=== PATIENT | male | born 1975 | race Caucasian/White ===

== ENCOUNTER → 2017-09-20 | Outpatient (CLI) | payer BC ==
[~2017-09-20] MED LIST: BACL10TA PO; IBUP-1428 PO
[2017-09-20 17:10] LABS: ALT/SGPT 49 U/L (12-78); AST/SGOT 16 U/L (15-37); BLOOD UREA NITROGEN 17 mg/dl (7-18); BUN/CREATININE RATIO 16.4 (10-20); CALCIUM 8.6 mg/dl (8.5-10.1); CARBON DIOXIDE 25 mmol/L (21-32); CHLORIDE 106 mmol/L (98-107); CREATININE 1.05 mg/dl (0.60-1.40); GLUCOSE 96 mg/dl (70-99); POTASSIUM 3.7 mmol/L (3.5-5.1); SODIUM 139 mmol/L (136-145)
[2017-09-20 17:17] LABS: PROLACTIN 5.32 ng/mL
[2017-09-20 17:21] LABS: ALB/GLOB RATIO 1.1 (0.9-2); ALKALINE PHOSPHATASE 80 U/L (45-117)
[2017-09-25 22:18] LABS: TESTOSTERONE,TOTAL 177 ng/dL (250-1100)
== END | disposition home or self-care (01) ==
LOC: C.LAB1850 15:20
PROVIDERS: ATTEND Plastic Surgery
DX: N62 Hypertrophy of breast (principal)

== ENCOUNTER → 2017-11-29 | Outpatient (CLI) | payer BC | END | disposition home or self-care (01) | LOC: C.LAB 06:56 | PROVIDERS: ATTEND Internal Medicine Endocrinology, Diabetes & Metabolism | DX: N62 Hypertrophy of breast (principal) ==

== ENCOUNTER → 2018-01-17 | Outpatient (CLI) | payer BC | END | disposition home or self-care (01) | LOC: C.MAMM 08:16 | PROVIDERS: ATTEND Internal Medicine Endocrinology, Diabetes & Metabolism | DX: E34.9 Endocrine disorder, unspecified (principal) ==

== ENCOUNTER → 2018-01-30 | Outpatient (CLI) | payer BC ==
[2018-01-30 15:40] LABS: BASO % 0.4 %; BASO ABS # 0.03 K/uL (0-0.2); EOS % 2.8 %; EOS ABS # 0.23 K/uL (0-0.5); HEMATOCRIT 45.1 % (42-52); HEMOGLOBIN 15.7 g/dL (14.0-18.0); IG# 0.02 K/uL (0.00-0.02); LYMPH % 32.9 %; LYMPH ABS # 2.69 K/uL (1.2-3.4); MEAN CELL VOLUME 88.3 fL (80-100); MEAN CORPUSCULAR HEMOGLOBIN 30.7 pg (25-34); MEAN CORPUSCULAR HGB CONC 34.8 g/dl (32-36); MEAN PLATELET VOLUME 10.8 fL (7.4-10.4); MONO % 8.9 %; MONO ABS # 0.73 K/uL (0.11-0.59); NEUT % 54.8 %; NEUT ABS # 4.48 K/uL (1.4-6.5); PLATELET COUNT 193 K/uL (130-400); RED CELL DISTRIBUTION WIDTH SD 42.1 fL (36.4-46.3); WHITE BLOOD COUNT 8.18 K/uL (4.8-10.8)
[2018-01-30 15:59] LABS: BLOOD UREA NITROGEN 15 mg/dl (7-18); CALCIUM 8.9 mg/dl (8.5-10.1); CARBON DIOXIDE 27 mmol/L (21-32); CREATININE 0.99 mg/dl (0.60-1.40); GLUCOSE 86 mg/dl (70-99); POTASSIUM 3.7 mmol/L (3.5-5.1); SODIUM 140 mmol/L (136-145)
== END | disposition home or self-care (01) ==
LOC: C.LAB 14:27
PROVIDERS: ATTEND Physician Assistant
DX: Z01.818 Encounter for other preprocedural examination (principal); N62 Hypertrophy of breast

== ENCOUNTER → 2018-02-13 | Outpatient (CLI) | payer BC ==
[~2018-02-13] MED LIST changes: -BACL10TA PO; -IBUP-1428 PO; +TEST5GEL TOP
== END | disposition home or self-care (01) ==
LOC: C.LAB 14:59
PROVIDERS: ATTEND Physician Assistant
DX: N62 Hypertrophy of breast (principal); Z01.818 Encounter for other preprocedural examination

== ENCOUNTER 2025-08-10 10:46 | Observation (INO) ==
--- NOTE | 2025-08-10 11:23 | Emergency Department Note ---
Impression & Plan Calculus, ureteral, Hydronephrosis, Acute kidney injury ED Provider Note CHIEF COMPLAINT: Abdominal pain HISTORY OF PRESENTING ILLNESS: The patient is a pleasant 49-year-old male who arrives to the emergency department for evaluation of abdominal pain that began on Sunday morning. Patient reports pain is in the lower abdomen. He reports dry heaves, chills, at night. He states he did have a low-grade fever as well. He reports the pain began constant today in the right lower quadrant of the abdomen. He reports no nausea, vomiting, diarrhea, or constipation. REVIEW OF SYSTEMS: See HPI for pertinent positives and pertinent negatives. ALLERGIES: See below MEDICATIONS: See below PAST MEDICAL HISTORY: See below PHYSICAL EXAM: VITALS: Vitals are noted on the nurse's note and reviewed by myself. Vital signs stable. GENERAL: 49-year-old male, in no acute distress, nondiaphoretic, well-developed well-nourished. SKIN: The skin was without rashes, erythema, edema, or bruising. HEART: Regular rate and rhythm without murmurs gallops or rubs. LUNGS: Clear to auscultation bilaterally without wheezes, rales or rhonchi. No retractions or accessory muscle use. ABDOMEN: Positive bowel sounds x 4. Soft, tender to palpation right lower quadrant with rebound tenderness present. No tenderness at umbilicus. No tenderness left lower quadrant. No hernia or mass noted. MUSCULOSKELETAL: No muscle atrophy, erythema, or edema noted. Normal gait. Strength 5/5 throughout. NEURO: Patient was alert and oriented to person place and time. No focal neurological deficits. DIFFERENTIAL DIAGNOSIS: Appendicitis, testicular torsion, infections, diverticulitis, UTI, obstruction, mesenteric ischemia, aortic pathology, inflammatory bowel disease, renal colic, PUD, pancreatitis, biliary pathology, hernia, volvulus, constipation, as well as other pathologies. ED COURSE AND MEDICAL DECISION MAKING: HISTORY FROM INDEPENDENT HISTORIAN: at bedside serving as secondary historian. MEDICATIONS GIVEN: 1 L NSS bolus, 4 mg IV Zofran, 4 mg IV morphine INTERPRETATION OF LABS: I interpreted the labs with full lab results as below in the lab section of this note. Pertinent lab results discussed in the MDM section below. INTERPRETATION OF IMAGING: Imaging studies were interpreted by myself and read by radiology as per the imaging section of this note. CONSULTATIONS: LOWELL Curran MDM SUMMARY: The patient is a pleasant, 49-year-old male who arrives to the emergency department for evaluation of the above-stated complaint. Saline lock was established, lab work is obtained. Lab work shows no leukocytosis, no anemia. CMP shows acute kidney injury, with elevated creatinine at 1.76. Total bili 1.6, negative AST, negative ALT, negative alk phos. Total CK 311. Urinalysis negative for bacteria, and nitrites, however 1+ leukocyte esterase, and 6-[address] imaging of the abdomen and pelvis with IV contrast was obtained which per my interpretation shows findings consistent with a 9 mm proximal right ureteral calculus causing mild to moderate right hydronephrosis. Patient was provided IV fluids, IV pain and nausea control. I spoke with LOWELL Curran from urology, who stated the patient will likely need intervention for passing the stone. Patient was admitted to the [facility] for medical admission. Please refer to their documentation for further patient workup and care. DIAGNOSIS: Right ureteral calculus, hydronephrosis, acute kidney injury The chart was completed utilizing [employer] Speech voice recognition software. Grammatical errors, random word insertions, pronoun errors, and incomplete sentences are an occasional consequence of this system due to software limitations, ambient noise, and hardware issues. Any formal questions or concerns about the content, text, or information contained within the body of this dictation should be directly addressed to the provider for clarification. Past Med/Surg History Problem List (Updated 08/10/25 @ 15:07 by LOWELL Vaca) Acute kidney injury (Acute) Hydronephrosis (Acute) Calculus, ureteral (Acute) Nocturnal hypoxemia Severe obstructive sleep apnea Obesity, Class II, BMI 35-39.9 S/P right rotator cuff repair Rotator cuff tear, right Lumbar facet joint syndrome Erectile dysfunction Hypertension H/O lumbar discectomy Lumbar radiculopathy Acute right lumbar radiculopathy (Acute) Chronic low back pain (Chronic) Herpes simplex type 1 infection (Acute) Hypertriglyceridemia (Acute) Low testosterone (Acute) Allergic rhinitis Anxiety Lumbar facet joint syndrome (Chronic) Medical History Hypertension Erectile dysfunction Allergic rhinitis Low testosterone in male Hypertriglyceridemia Lumbar radiculopathy, chronic Chronic low back pain Anxiety History of gynecomastia Surgical History S/P colonoscopy Hx of breast reduction, elective S/P lateral meniscal repair S/P ACL reconstruction RIGHT S/P wisdom tooth extraction Family History Father Lung cancer Denies family history of Ovarian cancer Prostate cancer Myocardial infarction Breast cancer Colorectal cancer Social History Smoking Status: Never smoker Second Hand Exposure: No; Do You Dip or Chew Tobacco: No; Hx Alcohol Use: Yes Alcohol type: beer, wine and hard liquor Alcohol Intake Frequency: 2-3 x/Week Hx Substance Use: No Preferred Language: Irish Communication Ability: Effective Visual Impairment: No Limitations Hearing Ability: Normal Housekeeping Room Attendant Required: No Beliefs That Will Affect Care: None marital status: Current Living Situation: Spouse current occupational status: employed 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 How many Children do You have: 1 Feels Safe at Home: Yes Childhood Exposure to Second-Hand Smoke: Yes Diet: regular caffeine: Yes during the past year weight has: remained stable Dental Care, Regularly: Yes Physical Activity Frequency: 1-2 Times per Week Seatbelt Use: always Sunscreen Use: Yes Assistive Devices: None Allergies Allergies Allergy/AdvReac Type Severity Reaction Status Date / Time benzocaine Allergy Unknown rash Verified 06/15/25 13:58 hydroxyzine AdvReac Mild Excessive Verified 06/15/25 13:58 drowsiness Home Meds Home Medications Medication Instructions Recorded Confirmed cyanocobalamin (vitamin B-12) 1,000 mcg PO QPM 04/10/24 08/10/25 1,000 mcg tablet (Vitamin B-12) Previous Rx's Medication Instructions Recorded epinephrine 0.3 mg/0.3 mL 0.3 mg (0.3 mL) IM Q10M PRN food 09/11/19 injection, auto-injector (EpiPen allergy #2 ea 2-Jose) hydrocortisone-pramoxine 1 %-1 % 1 applic topical TID PRN 03/29/23 topical foam hemorrhoids #10 grams tadalafil 10 mg tablet (Cialis) 10 mg PO DAILY PRN sexual activity 01/22/24 #20 tabs naproxen 500 mg tablet 500 mg PO BID PRN pain #14 tabs 07/10/24 olmesartan 40 mg tablet 40 mg PO QPM #90 tabs 10/27/24 valacyclovir 1 gram tablet 1,000 mg PO TID PRN Zoster #21 tabs 02/18/25 tamsulosin 0.4 mg capsule (Flomax) 0.8 mg (2 x 0.4 mg) PO DAILY #180 05/15/25 caps bupropion HCl 300 mg 24 hr tablet, 300 mg PO QAM #90 tabs 05/18/25 extended release diclofenac sodium 75 mg 75 mg PO BID #30 tabs 08/05/25 tablet,delayed release Results & Data (ED) Vital Signs Vital Signs - 24 hr 08/10/25 11:06 08/10/25 11:30 08/10/25 11:48 Temperature 37.3 C Temperature Source Temporal Artery Scan Pulse Rate 76 Pulse Rate [Finger] 85 Respiratory Rate 18 22 Respiratory Effort / Characteristics Non-Labored Spontaneous Respiratory Depth Normal Respiratory Pattern Regular Blood Pressure 162/85 H Blood Pressure [Right Arm] 130/88 Blood Pressure Mean 110 Blood Pressure Mean [Right Arm] 102 Pulse Oximetry 97 97 95 Oxygen Delivery Method Room Air Room Air Room Air Sepsis Recent Fever Within 48 Hours No Sepsis New/Unexplained Change in Mental Status N/A Sepsis Action Taken by Nursing No Action Required Home Medications Current Medication List: was personally reviewed by me Laboratory Data Attestation: I reviewed the patient's lab results. 08/10/25 11:45 08/10/25 11:45 Lab Results 08/10/25 08/10/25 08/10/25 Range/Units 11:45 11:45 13:08 WBC 9.79 (4.8-10.8) K/ul RBC 5.19 (4.70-6.10) M/uL Hgb 15.9 (14.0-18.0) g/dl Hct 45.1 (42.0-52.0) % MCV 86.9 (80.0-100.0) fL MCH 30.6 (25.0-34.0) pg MCHC 35.3 (32.0-36.0) g/dL RDW Std Deviation 40.5 (36.4-46.3) fL RDW Coeff of Yoana 12.7 (11.5-14.5) % Plt Count 217 (130-400) K/uL MPV 10.8 (9.4-12.4) fL Immature Gran % (Auto) 0.3 % Neut % (Auto) 73.1 % Lymph % (Auto) 16.1 % [place] % (Auto) 8.4 % Eos % (Auto) 1.7 % Baso % (Auto) 0.4 % Neut # (Auto) 7.15 H (1.40-6.50) K/uL Lymph # (Auto) 1.58 (1.20-3.40) K/uL [place] # (Auto) 0.82 H (0.11-0.59) K/uL Eos # (Auto) 0.17 (0.00-0.50) K/uL Baso # (Auto) 0.04 (0.00-0.20) K/uL Immature Gran # (Auto) 0.03 (0.01-0.20) K/uL Sodium 137 (136-145) mmol/L Potassium 4.0 (3.5-5.1) mmol/L Chloride 105 (98-107) mmol/L Carbon Dioxide 26 (21-32) mmol/L Anion Gap 6 (3-11) BUN 18 (6-23) mg/dl Creatinine 1.76 H (0.6-1.4) mg/dl Est Cr Clr Drug Dosing 70.2 ml/min eGFR 47.11 BUN/Creatinine Ratio 10.2 (10-20) Glucose 95 (70-99(Fasting)) mg/dl Calcium 9.0 (8.6-10.3) mg/dl Total Bilirubin 1.6 H (0.2-1.0) mg/dl AST 19 (13-39) U/L ALT 26 (7-52) U/L Alkaline Phosphatase 74 (34-104) U/L Total Creatine Kinase 311 H Cancelled (30-223) U/L Total Protein 7.6 (6.0-8.3) gm/dl Albumin 4.6 (3.4-5.0) gm/dl Globulin 3.0 (2.5-4.0) gm/dl Albumin/Globulin Ratio 1.5 (0.9-2) Lipase 25 (11-82) U/L Urine Color Yellow Urine Appearance Clear (Clear) Urine pH 5.5 (4.5-7.5) Ur Specific [place] 1.018 (1.000-1.030) Urine Protein Negative (Negative) Urine Glucose (UA) Negative (Negative) Urine Ketones Negative (Negative) Urine Blood Negative (Negative) Urine Nitrite Negative (Negative) Urine Bilirubin Negative (Negative) Urine Urobilinogen Negative (Negative) Ur Leukocyte Esterase 1+ H (Negative) Urine WBC (Auto) 6-10 H (0-5) /hpf Urine RBC (Auto) 3-5 H (0-2) /hpf U Hyaline Cast (Auto) 0-2 (0-2) /lpf U Epithel Cells (Auto) 0-2 (0-2) /hpf Urine Bacteria (Auto) None Seen (None Seen) Urine Comment Administered Medications Discontinued Medications Sodium Chloride (Nss) 1,000 mls @ 999 mls/hr IV .Q1H1M STA Stop: 08/10/25 12:24 Last Infusion: 08/10/25 13:08 Dose: Infused Documented By: Admin: 08/10/25 11:49 Dose: 999 mls/hr Documented By: YUKO Ioversol (Optiray 320 100ml) 94 ml IV ONCE ONE Stop: 08/10/25 13:00 Last Admin: 08/10/25 12:59 Dose: 94 ml Documented By: SHIVAM Morphine Sulfate (Morphine Sulfate 4 Mg/Ml 1 Ml Carp\Vial) 4 mg IV NOW STA Stop: 08/10/25 11:25 Last Admin: 08/10/25 11:49 Dose: 4 mg Documented By: YUKO Morphine Sulfate (Morphine Sulfate 4 Mg/Ml 1 Ml Carp\Vial) 4 mg IV NOW STA Stop: 08/10/25 15:12 Last Admin: 08/10/25 15:20 Dose: 4 mg Documented By: YUKO Ondansetron HCl (Ondansetron Inj 2 Mg/Ml 2 Ml Vial) 4 mg IV NOW STA Stop: 08/10/25 11:25 Last Admin: 08/10/25 11:49 Dose: 4 mg Documented By: YUKO Imaging Data Attestation: I personally reviewed and interpreted this imaging study as follows: Radiologist's Impression: Abdomen/Pelvis CT 08/10/25 11:[address] WITH IV CONTRAST CT DOSE: 1640.5 mGy.cm HISTORY: RLQ pain TECHNIQUE: Multiaxial CT images of the abdomen and pelvis were performed following the IV administration of 90 cc of Optiray, A dose lowering technique was utilized adhering to the principles of ALARA. COMPARISON STUDY: None FINDINGS: ABDOMEN: There is mild fatty liver. There are a few tiny liver cysts. Otherwise the liver, gallbladder, spleen, pancreas, and adrenal glands are unremarkable. There is mild to moderate hydronephrosis at the right kidney. There is a 9 mm calculus proximal right ureter. Right ureter is decompressed beyond that point. There is a small left renal calculus. There is no left hydronephrosis or ureteral calculi. There are moderate atherosclerotic calcifications. No abdominal aortic aneurysm. Pelvis: Prostate is enlarged. Urinary bladder is mildly distended. There are a few small prostate calcifications. No bowel inflammation or obstruction. No free fluid or free air. Normal appendix. No enlarged adenopathy. Osseous structures: There is mild lumbar degenerative disc disease. There are mild degenerative changes at the hips. IMPRESSION: 9 mm calculus proximal right ureter causes mild to moderate right hydronephrosis. ACT 112: Negative or not required by law. The above report was generated using voice recognition software. It may contain grammatical, syntax or spelling errors. Electronically signed by: Forest Jeong M.D. 08/10/2025 1:06 PM Discharge Plan Visit Data Chief Complaint: Abdominal Pain Stated Complaint: SIDE PAIN FOR 3 DAYS ED Provider: Caren Noriega ED Midlevel Provider: Ora Nieto Discharge Problem: Calculus, ureteral, Hydronephrosis, Acute kidney injury Patient Disposition: Admitted As Inpatient Condition: Good Forms Stand Alone Forms: My [facility] [employer] Prescriptions Prescriptions: No Action olmesartan 40 mg tablet 40 mg PO QPM Qty: 90 3RF valacyclovir 1 gram tablet 1,000 mg PO TID PRN (Reason: Zoster) Qty: 21 5RF bupropion HCl 300 mg tablet extended release 24 hr 300 mg PO QAM Qty: 90 3RF diclofenac sodium 75 mg tablet,delayed release (DR/EC) 75 mg PO BID Qty: 30 1RF epinephrine [EpiPen 2-Jose] 0.3 mg/0.3 mL auto-injector 0.3 mg IM Q10M PRN (Reason: food allergy) Qty: 2 1RF Patient Comments: 08/10- no fill history unable to verify Rx Instructions: until response hydrocortisone-pramoxine 1-1 % foam 1 applic topical TID PRN (Reason: hemorrhoids) Qty: 10 0RF Patient Comments: 08/10- otc unable to verify Rx Instructions: allow at least 3 hours between applications tadalafil [Cialis] 10 mg tablet 10 mg PO DAILY PRN (Reason: sexual activity) Qty: 20 0RF Patient Comments: 08/10- no fill history unable to verify Rx Instructions: administer approximately 30min before sexual activity; do not use more than 1 dose per 24hrs naproxen 500 mg tablet 500 mg PO BID PRN (Reason: pain) Qty: 14 1RF Patient Comments: 08/10- otc unable to verify tamsulosin [Flomax] 0.4 mg capsule 0.8 mg PO DAILY Qty: 180 3RF cyanocobalamin (vitamin B-12) [Vitamin B-12] 1,000 mcg Tablet 1,000 mcg PO QPM Patient Comments: 08/10- otc unable to verify Referrals Referrals: Daniel Mchugh DO [Primary Care Provider] -
[2025-08-10] MEDS: SODIUM CHLORIDE 0.9% 1,000 ML IV STA (11:49)
[2025-08-10] MEDS: MoRPHine SULFATE 4 MG/ML 1 ML CARP\\VIAL IV STA ×2 (11:49→15:20)
[2025-08-10] MEDS: ONDANSETRON INJ 2 MG/ML 2 ML VIAL IV STA (11:49)
[2025-08-10 12:05] LABS: Hematocrit (blood only) 45.1 % (42.0-52.0); Hemoglobin 15.9 g/dl (14.0-18.0); Immature Granulocytes # (auto) 0.03 K/uL (0.01-0.20); Immature Granulocytes % (auto) 0.3 %; Mean Corpuscular Hemoglobin 30.6 pg (25.0-34.0); Mean Corpuscular Volume 86.9 fL (80.0-100.0); Platelet Count 217 K/uL (130-400); RDW Standard Deviation 40.5 fL (36.4-46.3); Red Blood Count 5.19 M/uL (4.70-6.10); White Blood Count 9.79 K/ul (4.8-10.8)
[2025-08-10 12:33] LABS: Alanine Aminotransferase 26.0 U/L (7-52); Albumin Globulin Ratio 1.5 (0.9-2); Alkaline Phosphatase 74.0 U/L (34-104); Anion Gap 6.0 (3-11); Bilirubin,Total 1.6 mg/dl (0.2-1.0); Blood Urea Nitrogen 18.0 mg/dl (6-23); Calcium 9.0 mg/dl (8.6-10.3); Carbon Dioxide 26.0 mmol/L (21-32); Chloride 105.0 mmol/L (98-107); Creatinine Clr Calc Pharmacy 70.2 ml/min; Globulin 3.0 gm/dl (2.5-4.0); Glucose 95.0 mg/dl (70-99(Fasting)); Lipase 25.0 U/L (11-82); Potassium 4.0 mmol/L (3.5-5.1); Sodium 137.0 mmol/L (136-145); Total Protein 7.6 gm/dl (6.0-8.3)
[2025-08-10] MEDS: OPTIRAY 320 100ml IV ONE (12:59)
--- NOTE | 2025-08-10 13:08 | CT Scan Report ---
ABDOMEN AND PELVIS CT WITH IV CONTRAST CT DOSE: 1640.5 mGy.cm HISTORY: RLQ pain TECHNIQUE: Multiaxial CT images of the abdomen and pelvis were performed following the IV administrat ion of 90 cc of Optiray, A dose lowering technique was utilized adhering to the principles of ALARA. COMPARISON STUDY: None FINDINGS: ABDOMEN: There is mild fatty liver. There are a few tiny liver cysts. Otherwise the liver, gallbladde r, spleen, pancreas, and adrenal glands are unremarkable. There is mild to moderate hydronephrosis at the right kidney. There is a 9 mm calculus proximal right ureter. Right ureter is decompressed beyon d that point. There is a small left renal calculus. There is no left hydronephrosis or ureteral calcu li. There are moderate atherosclerotic calcifications. No abdominal aortic aneurysm. Pelvis: Prostate is enlarged. Urinary bladder is mildly distended. There are a few small prostate renetta cifications. No bowel inflammation or obstruction. No free fluid or free air. Normal appendix. No enl arged adenopathy. Osseous structures: There is mild lumbar degenerative disc disease. There are mild degenerative hunter es at the hips. IMPRESSION: 9 mm calculus proximal right ureter causes mild to moderate right hydronephrosis. ACT 112: Negative or not required by law. The above report was generated using voice recognition software. It may contain grammatical, syntax o r spelling errors. Electronically signed by: Forest Jeong M.D. 08/10/2025 1:06 PM
[2025-08-10 13:36] LABS: Creatine Kinase 311.0 U/L (30-223)
[2025-08-10 13:58] LABS: Appearance Urine Clear (Clear); Bacteria Urine Automated None Seen (None Seen); Cast Urine Automated 0-2 /lpf (0-2); Epithelial Cell Urine Auto 0-2 /hpf (0-2); Glucose Urine UA Negative (Negative)
--- NOTE | 2025-08-10 15:19 | History & Physical Report ---
Date of Service August 10, 2025 Assessment & Plan (1) Calculus, ureteral: Plan: Right ureter calculus with ureter colic. Pain control measures. Urology consultation (2) Acute kidney injury: Plan: Creatinine has bumped to 1.7 with normal baseline. IV fluids. Monitor urine output. Serial labs (3) Hydronephrosis: Plan: Right sided from proximal ureter stone. This should resolve with resolution of obstruction (4) Hypertension: Plan: Stable. Resume ARB treatment tomorrow, August 11 (5) Severe obstructive sleep apnea: Plan: Currently stable. CPAP as needed Plan Anticipate eventual discharge to home within the next 2 to 3 days pending clinical course History of Present Illness Chief Complaint: 2 days of right flank pain and nausea Primary Care Provider: Daniel Mchugh, DO 49-year-old white male with 2 days of right flank pain associated with nausea. He feels as if he has had an intermittent fever. The pain became more steady today and he came to the ED for evaluation. He was found to have a 9 mm proximal right ureter stone with associated moderate right hydronephrosis and acute kidney injury with creatinine up to 1.7. Urology consult has been obtained. He is admitted for further evaluation and treatment along with IV fluids and will probably undergo cystoscopy procedure with right ureter stent placement plus or minus lithotripsy of the stone Allergies Allergy/AdvReac Type Severity Reaction Status Date / Time benzocaine Allergy Unknown rash Verified 06/15/25 13:58 hydroxyzine AdvReac Mild Excessive Verified 06/15/25 13:58 drowsiness Home Medications Medication Instructions Recorded Confirmed Type epinephrine 0.3 mg/0.3 mL 0.3 mg (0.3 mL) IM Q10M PRN food 09/11/19 08/10/25 Rx injection, auto-injector (EpiPen allergy #2 ea 2-Jose) hydrocortisone-pramoxine 1 %-1 % 1 applic topical TID PRN 03/29/23 08/10/25 Rx topical foam hemorrhoids #10 grams tadalafil 10 mg tablet (Cialis) 10 mg PO DAILY PRN sexual activity 01/22/24 08/10/25 Rx #20 tabs cyanocobalamin (vitamin B-12) 1,000 mcg PO QPM 04/10/24 08/10/25 History 1,000 mcg tablet (Vitamin B-12) naproxen 500 mg tablet 500 mg PO BID PRN pain #14 tabs 07/10/24 08/10/25 Rx olmesartan 40 mg tablet 40 mg PO QPM #90 tabs 10/27/24 08/10/25 Rx valacyclovir 1 gram tablet 1,000 mg PO TID PRN Zoster #21 tabs 02/18/25 08/10/25 Rx tamsulosin 0.4 mg capsule (Flomax) 0.8 mg (2 x 0.4 mg) PO DAILY #180 05/15/25 08/10/25 Rx caps bupropion HCl 300 mg 24 hr tablet, 300 mg PO QAM #90 tabs 05/18/25 08/10/25 Rx extended release diclofenac sodium 75 mg 75 mg PO BID #30 tabs 08/05/25 08/10/25 Rx tablet,delayed release Past Med/Surg History Problem List (Updated 08/10/25 @ 15:07 by LOWELL Vaca) Acute kidney injury (Acute) Hydronephrosis (Acute) Calculus, ureteral (Acute) Nocturnal hypoxemia Severe obstructive sleep apnea Obesity, Class II, BMI 35-39.9 S/P right rotator cuff repair Rotator cuff tear, right Lumbar facet joint syndrome Erectile dysfunction Hypertension H/O lumbar discectomy Lumbar radiculopathy Acute right lumbar radiculopathy (Acute) Chronic low back pain (Chronic) Herpes simplex type 1 infection (Acute) Hypertriglyceridemia (Acute) Low testosterone (Acute) Allergic rhinitis Anxiety Lumbar facet joint syndrome (Chronic) Medical History Hypertension Erectile dysfunction Allergic rhinitis Low testosterone in male Hypertriglyceridemia Lumbar radiculopathy, chronic Chronic low back pain Anxiety History of gynecomastia Surgical History S/P colonoscopy Hx of breast reduction, elective S/P lateral meniscal repair S/P ACL reconstruction RIGHT S/P wisdom tooth extraction Family History Father Lung cancer Denies family history of Ovarian cancer Prostate cancer Myocardial infarction Breast cancer Colorectal cancer Social History Smoking Status: Never smoker Second Hand Exposure: No; Do You Dip or Chew Tobacco: No; Hx Alcohol Use: Yes Alcohol type: beer, wine and hard liquor Alcohol Intake Frequency: 2-3 x/Week Hx Substance Use: No Preferred Language: Ukrainian Communication Ability: Effective Visual Impairment: No Limitations Hearing Ability: Normal Package Clerk Required: No Beliefs That Will Affect Care: None marital status: Current Living Situation: Spouse current occupational status: employed 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 No rigors ENTno blurred vision, no double vision, no epistaxis, no sore throat Respiratoryno cough, no wheezing, no shortness of breath Cardiacno palpitations, no chest pain, no syncope Violetta nausea, vomiting, diarrhea, melena, hematochezia GUno urinary retention, no urinary incontinence, no dysuria, no hematuria Musculoskeletalno joint pain, no muscle tenderness Skinno bruising, no rashes, no pruritus Neurono isolated weakness, no paresthesia, no weakness Psychno depression, no anxiety Physical Exam 2 Physical Exam: General-alert and oriented x3, no fever, no chills HEENT-head atraumatic and normocephalic, pupils equal and reactive to light, extraocular muscles intact Neck-no lymphadenopathy or thyromegaly, trachea midline Chest-clear to auscultation. No rales, wheezing or rhonchi Cardiac-regular rate and rhythm, normal S1 and S2 Abdomen-normal bowel sounds, no hepatosplenomegaly Extremities-no cyanosis, clubbing, or edema Neuro-cranial nerves II through XII intact, motor and sensory function within normal limits, strength symmetrical, no focal deficits Psych-normal affect, normal mood Results & Data Results & Data Vital Signs (Past 12 Hours) Vital Signs Temp Pulse Pulse Resp BP BP Pulse Ox 08/10/25 11:48 95 08/10/25 11:30 85 22 130/88 97 08/10/25 11:06 37.3 C 76 18 162/85 H 97 O2 Del Method 08/10/25 11:48 Room Air 08/10/25 11:30 Room Air 08/10/25 11:06 Room Air Laboratory Results 08/10/25 11:45 08/10/25 11:45 Code Status & VTE Plan Code Status Full code PG Care Time/CCT Total # of Minutes Spent Total Time Spent with Patient: Total time spent is greater than 50% in coordination of care (as documented) at patient's floor/unit and/or counseling patient: Coding Level of Care Code 79222 INT INP/OBS CARE 3/75MIN Diagnoses Calculus, ureteral N20.1 Acute kidney injury N17.9 Hydronephrosis N13.30 Hypertension I10 Severe obstructive sleep apnea G47.33
--- NOTE | 2025-08-10 15:30 | Urology Consultation ---
Date of Consultation August 10, 2025 Assessment & Plan (1) Acute kidney injury: (2) Hydronephrosis: (3) Calculus, ureteral: Plan 49yo M admitted with right renal colic and PATTI secondary to an obstructing 9mm proximal right ureteral stone Pt afebrile, normotensive and not tachycardic at present. Labs show no leukocytosis and PATTI of 1.76. Urinalysis with 1+ LE, negative bacteria, negative nitrite Pain is currently manageable with medication. He did eat around 8/830 this morning. We discussed stone management with cystoscopy, right retrograde pyelogram, right stent placement with possible ureteroscopy, laser lithotripsy and stone treatment tomorrow with Dr. Delatorre. Ureteral stents were discussed as well as postoperative issues and pain management. Stone free rates as well as the possibility of additional procedure discussed. Risks/benefits discussed, all questions were answered. No plan for intervention tonight unless patient were to become febrile/unstable. Plan for n.p.o. at midnight for procedure tomorrow. Continue supportive care and pain management as needed. Urology to follow. Please contact our service urgently if patient develops fevers/acute changes as this may necessitate urgent intervention. History of Present Illness History of Present Illness 49-year-old male who presented to the ED today for evaluation of lower abdominal and right flank pain that has been ongoing for several days. He did have some chills and nausea on Sunday. Due to worsening pain today, he presented to the ED for evaluation. He is afebrile and hemodynamically stable. Labs show no leukocytosis and PATTI with creatinine of 1.76. Urinalysis shows 1+ LE, 610 WBC, negative bacteria, negative nitrite. CT abdomen pelvis demonstrated an obstructing 9 mm proximal right ureteral stone with mildmoderate right hydronephrosis. He is admitted to medicine service. Patient seen at bedside in the ED. He is awake and sitting in bedside chair. No acute distress. Pain is currently well-controlled. Denies fever, chills, nausea, vomiting at present. Denies hematuria or dysuria. He did eat around 8/830 this morning. He does report a history of kidney stones with spontaneous passage. Does not currently follow with a urologist. Allergies Allergy/AdvReac Type Severity Reaction Status Date / Time benzocaine Allergy Unknown rash Verified 06/15/25 13:58 hydroxyzine AdvReac Mild Excessive Verified 06/15/25 13:58 drowsiness Home Medications Medication Instructions Recorded Confirmed Type epinephrine 0.3 mg/0.3 mL 0.3 mg (0.3 mL) IM Q10M PRN food 09/11/19 08/10/25 Rx injection, auto-injector (EpiPen allergy #2 ea 2-Jose) hydrocortisone-pramoxine 1 %-1 % 1 applic topical TID PRN 03/29/23 08/10/25 Rx topical foam hemorrhoids #10 grams tadalafil 10 mg tablet (Cialis) 10 mg PO DAILY PRN sexual activity 01/22/2407/27 Rx #20 tabs cyanocobalamin (vitamin B-12) 1,000 mcg PO QPM 04/10/24 08/10/25 History 1,000 mcg tablet (Vitamin B-12) naproxen 500 mg tablet 500 mg PO BID PRN pain #14 tabs 07/10/24 08/10/25 Rx olmesartan 40 mg tablet 40 mg PO QPM #90 tabs 10/27/24 08/10/25 Rx valacyclovir 1 gram tablet 1,000 mg PO TID PRN Zoster #21 tabs 02/18/25 08/10/25 Rx tamsulosin 0.4 mg capsule (Flomax) 0.8 mg (2 x 0.4 mg) PO DAILY #180 05/15/25 08/10/25 Rx caps bupropion HCl 300 mg 24 hr tablet, 300 mg PO QAM #90 tabs 05/18/25 08/10/25 Rx extended release diclofenac sodium 75 mg 75 mg PO BID #30 tabs 08/05/25 08/10/25 Rx tablet,delayed release Patient History Medical History Hypertension Erectile dysfunction Allergic rhinitis Low testosterone in male Hypertriglyceridemia Lumbar radiculopathy, chronic Chronic low back pain Anxiety History of gynecomastia Surgical History S/P colonoscopy Hx of breast reduction, elective S/P lateral meniscal repair S/P ACL reconstruction RIGHT S/P wisdom tooth extraction Family History Father Lung cancer Denies family history of Ovarian cancer Prostate cancer Myocardial infarction Breast cancer Colorectal cancer Social History Smoking Status: Never smoker Second Hand Exposure: No; Do You Dip or Chew Tobacco: No; Hx Alcohol Use: Yes Alcohol type: beer, wine and hard liquor Alcohol Intake Frequency: 2-3 x/Week Hx Substance Use: No Preferred Language: Syriac Communication Ability: Effective Visual Impairment: No Limitations Hearing Ability: Normal Cash Management Clerk Required: No Beliefs That Will Affect Care: None marital status: Current Living Situation: Spouse current occupational status: employed 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 How many Children do You have: 1 Feels Safe at Home: Yes Childhood Exposure to Second-Hand Smoke: Yes Diet: regular caffeine: Yes during the past year weight has: remained stable Dental Care, Regularly: Yes Physical Activity Frequency: 1-2 Times per Week Seatbelt Use: always Sunscreen Use: Yes Assistive Devices: None Review of Systems Review of Systems: All systems reviewed & are unremarkable except as noted in HPI & below Physical Exam Constitutional: no acute distress non toxic appearing Neck: normal visual inspection Respiratory: no respiratory distress and no labored breathing Neurologic: moves all extremities and awake Psychiatric: A+Ox3, euthymic affect Results & Data Vital Signs (Past 12 Hours) Vital Signs Temp Pulse Pulse Resp BP BP Pulse Ox 08/10/25 11:48 95 08/10/25 11:30 85 22 130/88 97 08/10/25 11:06 37.3 C 76 18 162/85 H 97 O2 Del Method 08/10/25 11:48 Room Air 08/10/25 11:30 Room Air 08/10/25 11:06 Room Air PG Care Time/CCT Total # of Minutes Spent Total Time Spent with Patient: Total time spent is greater than 50% in coordination of care (as documented) at patient's floor/unit and/or counseling patient: Coding Level of Care Code 62361 IN/OBS CONSULT LVL 3,45M Diagnoses Acute kidney injury N17.9 Hydronephrosis N13.30 Calculus, ureteral N20.1
[2025-08-10] MEDS ORDERED: ONDANSETRON INJ 2 MG/ML 2 ML VIAL IV PRN (16:20)
[2025-08-10] MEDS ORDERED: MoRPHine SULFATE 2 MG/ML CARP IV PRN (16:20)
[2025-08-10] MEDS: cefTRIAXone SODIUM 2,000 MG/50 ML BAG IV SCH (17:24)
[2025-08-10] MEDS: SODIUM CHLORIDE 0.9% 1,000 ML IV SCH (17:24)
[2025-08-10] MEDS: CYANOCOBALAMIN (B-12) 500 MCG TABLET PO SCH (20:28)
[2025-08-10] MEDS: LOSARTAN POTASSIUM 50 MG TAB PO SCH (20:28)
[2025-08-11 07:21] LABS: Hematocrit (blood only) 40.1 % (42.0-52.0); Hemoglobin 14.2 g/dl (14.0-18.0); Immature Granulocytes # (auto) 0.03 K/uL (0.01-0.20); Immature Granulocytes % (auto) 0.3 %; Mean Corpuscular Hemoglobin 30.9 pg (25.0-34.0); Mean Corpuscular Volume 87.2 fL (80.0-100.0); Platelet Count 204 K/uL (130-400); RDW Standard Deviation 40.0 fL (36.4-46.3); Red Blood Count 4.60 M/uL (4.70-6.10); White Blood Count 9.48 K/ul (4.8-10.8)
[2025-08-11 07:34] LABS: Anion Gap 5.0 (3-11); Blood Urea Nitrogen 15.0 mg/dl (6-23); Calcium 8.4 mg/dl (8.6-10.3); Carbon Dioxide 25.0 mmol/L (21-32); Chloride 108.0 mmol/L (98-107); Creatinine Clr Calc Pharmacy 77.2 ml/min; Glucose 105.0 mg/dl (70-99(Fasting)); Potassium 4.3 mmol/L (3.5-5.1); Sodium 138.0 mmol/L (136-145)
[2025-08-11] MEDS: TAMSULOSIN HCL 0.4 MG CAP PO SCH (07:58)
[2025-08-11] MEDS ORDERED: HYDROmorphone INJ 1 MG/ML SYRINGE IV PRN (14:15)
[2025-08-11] MEDS ORDERED: LIDOCAINE 2% 2 ML VIAL/AMP(20MG/ML) INFIL ONE (14:15)
[2025-08-11] MEDS ORDERED: ONDANSETRON INJ 2 MG/ML 2 ML VIAL ONE (14:15)
[2025-08-11] MEDS ORDERED: PROPOFOL IV EMULSION 10 MG/ML 20 ML VIAL IV ONE (14:15)
[2025-08-11] MEDS ORDERED: ATROPINE SULFATE 0.1 MG/ML 10ML SYR IV PRN (14:15)
[2025-08-11] MEDS ORDERED: ONDANSETRON INJ 2 MG/ML 2 ML VIAL IV PRN (14:15)
[2025-08-11] MEDS ORDERED: DEXAMETHASONE SOD INJ 4 MG/ML VIAL ONE (14:15)
[2025-08-11] MEDS ORDERED: MIDAZOLAM HCL 1 MG/ML 2ML VIAL ONE (14:16)
--- NOTE | 2025-08-11 14:17 | Anesthesiology Consultation ---
Date of Service August 11, 2025 Assessment & Plan (1) Encounter for pre-operative examination: Chart Review Chart Review: Acceptable Risk for Surgery and Patient NOT seen in Pre Admission Testing Consults Requested none History Surgery Operation Date: 08/11/25 14:20 Proposed Procedures p Cystoscopy, Right Retrogradepyelogram, Right Stent, Possible Ureteroscopy, Laser Stone Treatment - Fritz Delatorre MD Height/Weight Height: 6 ft Weight: 125.2 kg Allergies Allergy/AdvReac Type Severity Reaction Status Date / Time benzocaine Allergy Unknown rash Verified 06/15/25 13:58 hydroxyzine AdvReac Mild Excessive Verified 06/15/25 13:58 drowsiness Medications Home Medications Medication Instructions Recorded Confirmed Last Taken epinephrine 0.3 mg/0.3 mL 0.3 mg (0.3 mL) IM Q10M PRN food 09/11/19 08/10/25 Unknown injection, auto-injector (EpiPen allergy #2 ea 2-Jose) hydrocortisone-pramoxine 1 %-1 % 1 applic topical TID PRN 03/29/23 08/10/25 Unknown topical foam hemorrhoids #10 grams tadalafil 10 mg tablet (Cialis) 10 mg PO DAILY PRN sexual activity 01/22/24 08/10/25 Unknown #20 tabs cyanocobalamin (vitamin B-12) 1,000 mcg PO QPM 04/10/24 08/10/25 Unknown 1,000 mcg tablet (Vitamin B-12) naproxen 500 mg tablet 500 mg PO BID PRN pain #14 tabs 07/10/24 08/10/25 Unknown olmesartan 40 mg tablet 40 mg PO QPM #90 tabs 10/27/24 08/10/25 Unknown valacyclovir 1 gram tablet 1,000 mg PO TID PRN Zoster #21 tabs 02/18/25 08/10/25 Unknown tamsulosin 0.4 mg capsule (Flomax) 0.8 mg (2 x 0.4 mg) PO DAILY #180 05/15/25 08/10/25 Unknown caps bupropion HCl 300 mg 24 hr tablet, 300 mg PO QAM #90 tabs 05/18/25 08/10/25 Unknown extended release diclofenac sodium 75 mg 75 mg PO BID #30 tabs 08/05/25 08/10/25 Unknown tablet,delayed release Active Medications Generic Name Dose Route Start Last Admin Trade Name Freq PRN Reason Stop Dose Admin Bupropion HCl 300 mg 08/11/25 09:00 08/11/25 07:58 Bupropion Xl 300 Mg Tabcr PO 09/10/25 08:59 300 mg QAM MATTY Administration Cyanocobalamin 1,000 mcg 08/10/25 21:00 08/10/25 20:28 Cyanocobalamin (B-12) 500 Mcg Tablet PO 09/09/25 20:59 1,000 mcg QPM MATTY Administration Sodium Chloride 1,000 mls @ 100 mls/hr 08/10/25 16:20 08/11/25 14:15 Nss IV 08/13/25 16:19 0 mls/hr .Q10H MATTY Infusion Ceftriaxone Sodium 2,000 mg in 50 mls @ 100 mls/hr 08/10/25 16:45 08/10/25 18:19 Rocephin IV 08/12/25 16:44 Infused Q24H MATTY Infusion Losartan Potassium 100 mg 08/10/25 21:00 08/10/25 20:28 Losartan Potassium 50 Mg Tab PO 09/09/25 20:59 100 mg QPM MATTY Administration Tamsulosin HCl 0.8 mg 08/11/25 09:00 08/11/25 07:58 Tamsulosin Hcl 0.4 Mg Cap PO 09/10/25 08:59 0.8 mg DAILY MATTY Administration Past Medical History Medical History (Updated 08/11/25 @ 14:17 by Andres Barbour MD) Obesity, Class II, BMI 35-39.9 Severe obstructive sleep apnea Encounter for pre-operative examination Hypertension Erectile dysfunction Allergic rhinitis Low testosterone in male Hypertriglyceridemia Lumbar radiculopathy, chronic Chronic low back pain Anxiety History of gynecomastia Past Family History Family History Father Lung cancer Denies family history of Ovarian cancer Prostate cancer Myocardial infarction Breast cancer Colorectal cancer Past Surgical History Surgical History S/P colonoscopy Hx of breast reduction, elective S/P lateral meniscal repair S/P ACL reconstruction RIGHT S/P wisdom tooth extraction Social History Smoking Status: Never smoker tobacco type: smokeless tobacco Do You Dip or Chew Tobacco: No Hx Alcohol Use: Yes Alcohol type: beer, wine and hard liquor alcohol intake frequency: holidays/special occasions only Hx Substance Use: No substance use type: does not use Physical Exam Vital Signs Last Vital Signs Temp 36.7 C 08/11/25 14:15 Pulse 74 08/11/25 14:15 Resp 18 08/11/25 14:15 BP 138/93 08/11/25 14:15 Pulse Ox 100 08/11/25 14:15 O2 Del Method Room Air 08/11/25 14:15 Testing Laboratory Results 08/11/25 07:03 08/11/25 07:03 Urine Color Yellow 08/10/25 13:08 Urine Appearance Clear (Clear) 08/10/25 13:08 Urine pH 5.5 (4.5-7.5) 08/10/25 13:08 Ur Specific [place] 1.018 (1.000-1.030) 08/10/25 13:08 Urine Protein Negative (Negative) 08/10/25 13:08 Urine Glucose (UA) Negative (Negative) 08/10/25 13:08 Urine Ketones Negative (Negative) 08/10/25 13:08 Urine Nitrite Negative (Negative) 08/10/25 13:08 Ur Leukocyte Esterase 1+ (Negative) H 08/10/25 13:08 Urine WBC (Auto) 6-10 /hpf (0-5) H 08/10/25 13:08 Urine RBC (Auto) 3-5 /hpf (0-2) H 08/10/25 13:08 U Hyaline Cast (Auto) 0-2 /lpf (0-2) 08/10/25 13:08 U Epithel Cells (Auto) 0-2 /hpf (0-2) 08/10/25 13:08 Urine Bacteria (Auto) None Seen (None Seen) 08/10/25 13:08
--- NOTE | 2025-08-11 14:25 | Urology Progress Note ---
Date of Service August 11, 2025 Assessment & Plan (1) Calculus, ureteral: Plan Right ureteral calculus Plan for cystoscopy, right ureteroscopy, laser lithotripsy and stent placement today Risks, benefits, expectations reviewed Admission and Anticipated Discharge Date Admission Date: August 10, 2025 Subjective 49-year-old with a right ureteral calculus Doing well now but we are planning on intervention today in the form of ureteroscopy and laser lithotripsy Physical Exam Constitutional: well developed and well nourished Neck: neck nontender Respiratory: normal respiratory effort; no respiratory distress and does not use accessory muscles Cardiovascular: Rate/Rhythm: regular rate Vessels: radial pulses present Extremities: no edema Gastrointestinal (Abdomen): Inspection/Auscultation: abdomen normal to inspection Percussion/Palpation: abdomen soft; abdomen nontender and no guarding Musculoskeletal: Head/Neck/Chest: normocephalic and head atraumatic Extremities: extremities normal to inspection Skin: no rashes and no lesions Trauma: no evidence of skin trauma Neurologic: awake; not obtunded Speech / Cognition: normal speech Motor/Sensory: no tremor Psychiatric: Orientation: alert and oriented x 3 Genitourinary: no CVA tenderness Lymphatic: no lymphadenopathy Results & Data Vital Signs (Past 12 Hours) Vital Signs Temp Pulse Resp BP Pulse Ox O2 Del Method 08/11/25 14:15 36.7 C 74 18 138/93 100 Room Air 08/11/25 07:25 36.6 C 75 18 158/81 H 96 Room Air PG Care Time/CCT Total # of Minutes Spent Total Time Spent with Patient: Total time spent is greater than 50% in coordination of care (as documented) at patient's floor/unit and/or counseling patient: Coding Level of Care Code 54302 SUB INP/OBS CARE 12/20MIN Diagnoses Calculus, ureteral N20.1
--- NOTE | 2025-08-11 15:52 | Operative Report ---
PG Post Operative Report Pre & Post Diagnosis Operation Date: 08/11/25 14:20 Pre-Op Diagnosis: Right ureteral calculus Post-Op Diagnosis: Right ureteral calculus I identified the patient and participated in the time-out.: Yes Procedure Operation Date: 08/11/25 14:20 Actual Procedures p Cystoscopy, Right Ureteroscopy, Right Retrogradepyelogram, Laser Destruction of Stone, Insertion of Right Ureteral Stent(Right) - Fritz Delatorre MD Surgeon Fritz Delatorre MD Self Contained Behavior Unit Teacher none Estimated Blood Loss 1 Findings Consistent with Post-Op Diagnosis Specimens none Description of Procedure The patient was identified in the preoperative holding area, appropriate informed consents were reviewed and completed and the patient was transferred to the operative suite. Upon arrival, appropriate antibiotics and anesthesia were administered and the patient was placed in dorsal lithotomy position and prepped and draped in sterile fashion. To begin the case I passed a 21 [place] cystoscope with 30 degree lens and visual obturator. Inspection revealed a healthy appearing urethra, prostate, bladder. UOs were in orthotopic position. I cannulated the right UO with a sensor wire and a 10 [place] double-lumen catheter. I then left the wire in place and reentered the bladder with a semirigid ureteroscope which I guided into the distal right ureter. I advanced the scope to its maximal extent and at that point I encountered an impacted ureteral calculus. I used a 200 m laser fiber to begin fragmentation of the stone I was able to free it from inside of impaction. I thought I had the stone down to size it was likely safe for spontaneous passage and I attempted to basket the stone, however progressed retrograde up the ureter just out of my reach. In turn, I placed a second wire through the scope and withdrew the semirigid scope. I then advanced a flexible ureteroscope and I encountered the stone which had fallen back into the kidney. I was able to use the 200 m laser fiber and fragment the remaining portion of the stone completely. I performed repeat renoscopy through a dilated collecting system on several occasions and confirm no other fragments. I then performed a careful exit ureteroscopy and confirmed a healthy appearing ureter and the site of impaction appeared to be appropriate and improving even from the time of dislodging the stone. I concluded the case by placing a 6 [place] by 26 cm double-J stent significant curl in the kidney as well as the bladder. The string was left attached and it was taped to his penis. I attest to the content of the Intraoperative Record and any orders documented therein. Any exceptions are noted below.
--- NOTE | 2025-08-11 15:54 | Operative Report ---
PG Post Operative Report Pre & Post Diagnosis Operation Date: 08/11/25 14:20 Pre-Op Diagnosis: Right ureteral calculus Post-Op Diagnosis: Right ureteral calculus I identified the patient and participated in the time-out.: Yes Procedure Operation Date: 08/11/25 14:20 Actual Procedures p Cystoscopy, Right Ureteroscopy, Right Retrogradepyelogram, Laser Destruction of Stone, Insertion of Right Ureteral Stent(Right) - Fritz Delatorre MD Surgeon Fritz Delatorre MD Vein Pumper none Estimated Blood Loss 1 Findings Consistent with Post-Op Diagnosis Specimens none Description of Procedure Of note, prior dictation did not save appropriately Repeat dictation now Cystoscopy performed after sterile prep and drape. A 21 [place] cystoscope was passed per urethra. His urethra, prostate, bladder were all healthy. His ureteral orifices were in orthotopic position. I cannulated the right UO and advanced a wire to the kidney. I then reentered the bladder with a semirigid ureteroscope and I found a stone at the maximal extent that I could advance the semirigid scope. This was in a location where I could treat it with a 200 m fiber and it was impacted into the wall of the ureter. I partially treated the stone and freed it from inside of impaction and then attempted to basket out of the ureter, however it moved retrograde into the kidney. In turn I placed a second wire through the scope and withdrew the semirigid scope. I then advanced a flexible scope and performed full renoscopy. His kidney was dilated but I was able to find the stone in the midpole and I pushed into a posterior calyx where I used a 200 m laser fiber to fragment the stone entirely. I performed repeat renoscopy on several occasions to confirm that no other fragments remained. I then performed a careful exit ureteroscopy and I confirmed that the site of prior impaction was appropriate and seem to be improving already. I can then completed the ureteroscopic exit and saw no other stones or issues with the ureter. I concluded the case by placing a 6 [place] by 26 cm double-J stent. There was a good curl in the kidney as well as the bladder. The string was left attached. His stent will be removed in 48 hours in our office. He likely can be discharged home tonight. There were no complications. I attest to the content of the Intraoperative Record and any orders documented therein. Any exceptions are noted below.
--- NOTE | 2025-08-11 16:00 | Fluoroscopy Report ---
FL retrograde includes kub CLINICAL HISTORY: RIGHT RETROGRADE, LASER, STENT COMPARISON STUDY: None FLUOROSCOPY TIME: 15 seconds FLUOROSCOPY IMAGES: 3 EXPOSURE DOSE: 7 mGy FINDINGS: Fluoroscopy was provided for urologic procedure. IMPRESSION: Intraoperative fluoroscopy. ACT 112: Negative or not required by law. Electronically signed by: Forest Jeong M.D. 08/11/2025 3:58 PM
--- NOTE | 2025-08-11 16:10 | Anesthesiology Progress Note ---
Date of Service August 11, 2025 Anesthesia Post Procedure Vital Signs Vital Signs: Temp Pulse Pulse Resp BP Pulse Ox O2 Del Method 08/11/25 16:05 97.5 F L 77 15 146/86 H 98 Room Air 08/11/25 15:55 79 13 152/81 H 100 Nasal Cannula 08/11/25 15:47 96.8 F L 82 14 171/79 H 99 Nasal Cannula 08/11/25 14:15 98.1 F 74 18 138/93 100 Room Air 08/11/25 07:25 97.9 F 75 18 158/81 H 96 Room Air 08/10/25 22:59 97.7 F 78 12 159/80 H 97 Room Air 08/10/25 17:28 Room Air O2 Flow Rate 08/11/25 16:05 08/11/25 15:55 2 08/11/25 15:47 4 08/11/25 14:15 08/11/25 07:25 08/10/25 22:59 08/10/25 17:28 Pain Intensity Abdomen: Pain Intensity: 8 Transfer of Care Handoff Completed per policy Notes Mental Status: alert / awake / arousable and participated in evaluation Patient Amnestic to Procedure: Yes Nausea / Vomiting: adequately controlled Pain: adequately controlled Airway Patency, RR, SpO2: stable & adequate BP & HR: stable & adequate Hydration State: stable & adequate Anesthetic Complications: no major complications apparent and Pt Satisfied with anesthetic care
--- NOTE | 2025-08-11 16:14 | Hospitalist Progress Note ---
Date of Service August 11, 2025 Assessment & Plan (1) Calculus, ureteral: Plan: Right ureter calculus with ureter colic. Pain control measures. Urology consultation and intervention appreciated (2) Acute kidney injury: Plan: Creatinine remains elevated. Continue IV fluids. Now that the stone obstruction has been relieved, I suspect the creatinine will normalize quickly. Serial labs (3) Hydronephrosis: Plan: Right sided from proximal ureter stone. This should resolve now with resolution of obstruction (4) Hypertension: Plan: Stable. Resume ARB treatment this evening, August 11 (5) Severe obstructive sleep apnea: Plan: Currently stable. CPAP as needed Plan Anticipate eventual discharge to home tomorrow, August 12 Admission and Anticipated Discharge Date Admission Date: August 10, 2025 Subjective The patient was seen before his urological procedure today. He subsequently underwent cystoscopy with right ureter stent placement and laser lithotripsy. Creatinine remains elevated and IV fluids will continue today. I suspect his creatinine will be significantly improved if not normal tomorrow, August 12, and he will be able to go home. Review of Systems 2 Review of Systems: Constitutionalintermittent low-grade fever. No rigors ENTno blurred vision, no double vision, no epistaxis, no sore throat Respiratoryno cough, no wheezing, no shortness of breath Cardiacno palpitations, no chest pain, no syncope Violet[place] nausea, vomiting, diarrhea, melena, hematochezia GUno urinary retention, no urinary incontinence, no dysuria, no hematuria Musculoskeletalno joint pain, no muscle tenderness Skinno bruising, no rashes, no pruritus Neurono isolated weakness, no paresthesia, no weakness Psychno depression, no anxiety Physical Exam 2 Physical Exam: General-alert and oriented x3, no fever, no chills HEENT-head atraumatic and normocephalic, pupils equal and reactive to light, extraocular muscles intact Neck-no lymphadenopathy or thyromegaly, trachea midline Chest-clear to auscultation. No rales, wheezing or rhonchi Cardiac-regular rate and rhythm, normal S1 and S2 Abdomen-normal bowel sounds, no hepatosplenomegaly Extremities-no cyanosis, clubbing, or edema Neuro-cranial nerves II through XII intact, motor and sensory function within normal limits, strength symmetrical, no focal deficits Psych-normal affect, normal mood Results & Data Results & Data Vital Signs (Past 12 Hours) Vital Signs Temp Pulse Pulse Resp BP Pulse Ox O2 Del Method 08/11/25 16:05 36.4 C L 77 15 146/86 H 98 Room Air 08/11/25 15:55 79 13 152/81 H 100 Nasal Cannula 08/11/25 15:47 36 C L 82 14 171/79 H 99 Nasal Cannula 08/11/25 14:15 36.7 C 74 18 138/93 100 Room Air 08/11/25 07:25 36.6 C 75 18 158/81 H 96 Room Air O2 Flow Rate 08/11/25 16:05 08/11/25 15:55 2 08/11/25 15:47 4 08/11/25 14:15 08/11/25 07:25 Laboratory Results 08/11/25 07:03 08/11/25 07:03 PG Care Time/CCT Total # of Minutes Spent Total Time Spent with Patient: Total time spent is greater than 50% in coordination of care (as documented) at patient's floor/unit and/or counseling patient: Coding Level of Care Code 93735 SUB INP/OBS CARE 2/35MIN Diagnoses Calculus, ureteral N20.1 Acute kidney injury N17.9 Hydronephrosis N13.30 Hypertension I10 Severe obstructive sleep apnea G47.33
[2025-08-12 07:41] LABS: Hematocrit (blood only) 42.1 % (42.0-52.0); Hemoglobin 14.1 g/dl (14.0-18.0); Immature Granulocytes # (auto) 0.02 K/uL (0.01-0.20); Immature Granulocytes % (auto) 0.2 %; Mean Corpuscular Hemoglobin 29.3 pg (25.0-34.0); Mean Corpuscular Volume 87.5 fL (80.0-100.0); Platelet Count 224 K/uL (130-400); RDW Standard Deviation 39.8 fL (36.4-46.3); Red Blood Count 4.81 M/uL (4.70-6.10); White Blood Count 11.93 K/ul (4.8-10.8)
[2025-08-12 07:58] VITALS: RESP 18
[2025-08-12 08:03] LABS: Anion Gap 7.0 (3-11); Blood Urea Nitrogen 17.0 mg/dl (6-23); Calcium 8.7 mg/dl (8.6-10.3); Carbon Dioxide 23.0 mmol/L (21-32); Chloride 109.0 mmol/L (98-107); Creatinine Clr Calc Pharmacy 97.2 ml/min; Glucose 107.0 mg/dl (70-99(Fasting)); Potassium 4.3 mmol/L (3.5-5.1); Sodium 139.0 mmol/L (136-145)
[2025-08-12] MEDS: CIPROFLOXACIN 500 MG TAB PO SCH (10:24)
[2025-08-12 10:56] VITALS: BP 160/94; PULSE 68; TEMP 97.7; O2SAT 100
--- NOTE | 2025-08-12 10:56 | Urology Progress Note ---
Date of Service August 12, 2025 Assessment & Plan (1) Hydronephrosis: (2) Calculus, ureteral: Plan Postop day #1 status post right ureteroscopy and laser lithotripsy Stent with a string left Plan for discharge today and removal of the stent in the outpatient setting tomorrow We will then arrange for long-term follow-up for him Did extremely well after surgery Admission and Anticipated Discharge Date Admission Date: August 10, 2025 Subjective Status post ureteroscopy and laser lithotripsy last night Doing very well this morning is very anxious to go home Physical Exam Physical Exam: No apparent distress Abdomen soft Looks healthy and appropriate Tolerating stent well Results & Data Vital Signs (Past 12 Hours) Vital Signs Temp Pulse Resp BP Pulse Ox O2 Del Method 08/12/25 07:04 36.7 C 62 18 137/86 95 Room Air 08/12/25 03:21 36.6 C 78 16 160/68 H 96 Room Air 08/11/25 23:34 36.9 C 78 14 159/75 H 95 Room Air PG Care Time/CCT Total # of Minutes Spent Total Time Spent with Patient: Total time spent is greater than 50% in coordination of care (as documented) at patient's floor/unit and/or counseling patient: Coding Level of Care Code 25508 SUB INP/OBS CARE 12/20MIN Diagnoses Hydronephrosis N13.30 Calculus, ureteral N20.1
--- NOTE | 2025-08-12 11:52 | Discharge Summary ---
Discharge Summary Date of Service August 12, 2025 Principal Dx & Hospital Course #1 = Principal Diagnosis (1) Calculus, ureteral: The patient presented with right ureter calculus with ureter colic. Urology consultation appreciated. He underwent cystoscopy with laser lithotripsy of the stone and placement of right ureteral stent. (2) Acute kidney injury: Present on admission. Resolved with IV fluids. (3) Hydronephrosis: Right sided from proximal ureter stone. This should resolve now with resolution of obstruction (4) Hypertension: Stable. ARB medication has been resumed. (5) Severe obstructive sleep apnea: Currently stable. CPAP as needed Plan Home today, August 12. He will remain on oral Cipro for 3 more days and follow-up with urology as scheduled Admission HPI Per Admitting Provider 49-year-old white male with 2 days of right flank pain associated with nausea. He feels as if he has had an intermittent fever. The pain became more steady today and he came to the ED for evaluation. He was found to have a 9 mm proximal right ureter stone with associated moderate right hydronephrosis and acute kidney injury with creatinine up to 1.7. Urology consult has been obtained. He is admitted for further evaluation and treatment along with IV fluids and will probably undergo cystoscopy procedure with right ureter stent placement plus or minus lithotripsy of the stone Discharge Exam General-alert and oriented x3, no fever, no chills HEENT-head atraumatic and normocephalic, pupils equal and reactive to light, extraocular muscles intact Neck-no lymphadenopathy or thyromegaly, trachea midline Chest-clear to auscultation. No rales, wheezing or rhonchi Cardiac-regular rate and rhythm, normal S1 and S2 Abdomen-normal bowel sounds, no hepatosplenomegaly Extremities-no cyanosis, clubbing, or edema Neuro-cranial nerves II through XII intact, motor and sensory function within normal limits, strength symmetrical, no focal deficits Psych-normal affect, normal mood Discharge Plan Discharge Items Patient Disposition: Home - Self-Care Reason For Visit: URETERAL CALCULUC/COLIC, PATTI, HYDRONEPHROSIS Discharge Diagnosis: Right ureteral calculus with ureteral colic, acute kidney injury, right hydronephrosis Condition on Discharge: Good Activity: Resume your previous activity Lifting: Gradually increase as tolerated Bathing: No limitations Sexual Activity: When tolerated Exercise/Sports: Gradually increase as tolerated Driving/Machine Use: Resume 1 day after discharge Non-emergency contact: Urologist Call non-emergency contact if: you have any medication questions, your pain is concerning for you, you have a fever and your temperature is above 101.5 Follow-up/Referrals: Daniel Mchugh DO [Primary Care Provider] - 08/17/25 9:20 am [facility],Nurse [FAKE FOR SCHEDULES] - 08/13/25 9:45 am Diet: Regular Addtl Attending Provider Instructions: Please continue your previous diet, take all medications as prescribed and keep all follow-ups as scheduled. Please call our office at [phone] with any questions, concerns or need to reschedule appointments for any reason. We are happy to assist you. You are scheduled for stent removal in the urology clinic on 08/13/25 at 9:45AM. While you have a ureteral stent in place: Some discomfort is normal. Certain movements may trigger pain or a feeling that you need to urinate. You may also feel mild soreness or pressure before or during urination. These symptoms should go away a few days after the stent is removed. Your urine may be slightly pink or red. This is due to bleeding caused by minor irritation from the stent. This may happen on and off while you have the stent, it is not harmful and is to be expected. Medication to help minimize discomfort or bladder spasms, or to prevent infection may be prescribed. Take this as directed. Drink plenty of fluids to help flush out your urinary tract. If you go home with a catheter, wash with soapy water and a fresh washcloth twice daily. We recommend mild bar soap such as Dial or Dove. How long will you need a stent? An appointment should already be made for you for stent removal, unless directed otherwise. The stent is often taken out after the blockage in the ureter is treated or the ureter has healed. This may take 1-2 weeks, or longer. If a stent is needed for a longer period of time, it may need to be exchanged every few months. Likely prior to your followup appointment you will be asked to get an X-ray, please complete this the night before or morning of your appointment. When to call [facility] Urology at [phone]: Your urine contains heavy blood clots You are constantly leaking urine Fever of 101F or higher, chills, nausea, or vomiting Your pain is not relieved with medication The end of the stent comes out of your urethra Take ciprofloxacin 500 mg twice a day for 3 days. Tramadol can be used as needed for any recurrent pain. Prescriptions have been sent to your pharmacy at [facility] Pending Studies at Discharge: No Stand-Alone Forms: My [facility], Smoking Cessation Medications and DC Order Prescriptions: New ciprofloxacin HCl [Cipro] 500 mg tablet 500 mg PO BID Qty: 6 0RF tramadol 50 mg tablet 50 mg PO Q6H PRN (Reason: pain) Qty: 20 0RF Continued olmesartan 40 mg tablet 40 mg PO QPM Qty: 90 3RF valacyclovir 1 gram tablet 1,000 mg PO TID PRN (Reason: Zoster) Qty: 21 5RF bupropion HCl 300 mg tablet extended release 24 hr 300 mg PO QAM Qty: 90 3RF diclofenac sodium 75 mg tablet,delayed release (DR/EC) 75 mg PO BID Qty: 30 1RF epinephrine [EpiPen 2-Jose] 0.3 mg/0.3 mL auto-injector 0.3 mg IM Q10M PRN (Reason: food allergy) Qty: 2 1RF Patient Comments: 08/10- no fill history unable to verify Rx Instructions: until response hydrocortisone-pramoxine 1-1 % foam 1 applic topical TID PRN (Reason: hemorrhoids) Qty: 10 0RF Patient Comments: 08/10- otc unable to verify Rx Instructions: allow at least 3 hours between applications tadalafil [Cialis] 10 mg tablet 10 mg PO DAILY PRN (Reason: sexual activity) Qty: 20 0RF Patient Comments: 08/10- no fill history unable to verify Rx Instructions: administer approximately 30min before sexual activity; do not use more than 1 dose per 24hrs naproxen 500 mg tablet 500 mg PO BID PRN (Reason: pain) Qty: 14 1RF Patient Comments: 08/10- otc unable to verify tamsulosin [Flomax] 0.4 mg capsule 0.8 mg PO DAILY Qty: 180 3RF cyanocobalamin (vitamin B-12) [Vitamin B-12] 1,000 mcg Tablet 1,000 mcg PO QPM Patient Comments: 08/10- otc unable to verify Discharge Orders: Discharge Order (Routine); Ordered 08/12/25 Ordered By: Thang Mohan Admission Data Admit Date/Time: 08/10/25 15:08 Attending Provider: Thang Mohan Admit Provider: Thang Mohan Primary Care Provider: Daniel Mchugh Other Providers: Fritz Delatorre Hospital Stay Data Consultations 08/10/25 16:20 Consult Urology Routine Procedures Performed Operation Date: 08/11/25 14:20 Actual Procedures p Cystoscopy, Right Ureteroscopy, Right Retrogradepyelogram, Laser Destruction of Stone,(Right) - Fritz Delatorre MD s Insertion of Right Ureteral Stent(Right) - Fritz Delatorre MD Diagnostic Imagining Performed 08/10/25 11:24 CT abd pelvis IV con only Stat 08/11/25 [place] retrograde includes kub Routine Pending Results Patient Have Any Pending Studies at Discharge: No Discharge Instructions Given to Patient (Per Discharging Provider) Please continue your previous diet, take all medications as prescribed and keep all follow-ups as scheduled. Please call our office at [phone] with any questions, concerns or need to reschedule appointments for any reason. We are happy to assist you. You are scheduled for stent removal in the urology clinic on 08/13/25 at 9:45AM. While you have a ureteral stent in place: Some discomfort is normal. Certain movements may trigger pain or a feeling that you need to urinate. You may also feel mild soreness or pressure before or during urination. These symptoms should go away a few days after the stent is removed. Your urine may be slightly pink or red. This is due to bleeding caused by minor irritation from the stent. This may happen on and off while you have the stent, it is not harmful and is to be expected. Medication to help minimize discomfort or bladder spasms, or to prevent infection may be prescribed. Take this as directed. Drink plenty of fluids to help flush out your urinary tract. If you go home with a catheter, wash with soapy water and a fresh washcloth twice daily. We recommend mild bar soap such as Dial or Dove. How long will you need a stent? An appointment should already be made for you for stent removal, unless directed otherwise. The stent is often taken out after the blockage in the ureter is treated or the ureter has healed. This may take 1-2 weeks, or longer. If a stent is needed for a longer period of time, it may need to be exchanged every few months. Likely prior to your followup appointment you will be asked to get an X-ray, please complete this the night before or morning of your appointment. When to call [facility] Urology at [phone]: Your urine contains heavy blood clots You are constantly leaking urine Fever of 101F or higher, chills, nausea, or vomiting Your pain is not relieved with medication The end of the stent comes out of your urethra Take ciprofloxacin 500 mg twice a day for 3 days. Tramadol can be used as needed for any recurrent pain. Prescriptions have been sent to your pharmacy at [facility] Total Time Total Time Spent Total Time Spent (In Minutes): 45 minutes Coding Level of Care Code 39209 INP/OBS DISCH >30 MIN Diagnoses Calculus, ureteral N20.1 Acute kidney injury N17.9 Hydronephrosis N13.30 Hypertension I10 Severe obstructive sleep apnea G47.33
== END 2025-08-12 12:56 | disposition home or self-care (01) | DRG 661 ==
LOC: SUATTDRO → ED 10:46 → INTOOBSV 15:08 → 3N 15:08